=== PATIENT | female | born 1985 | race Caucasian/White ===

== ENCOUNTER 2017-08-19 15:01 | Emergency (ER) | payer OTHER ==
[~2017-08-19] VITALS: Ht 152.4 cm; Wt 57.6 kg
[2017-08-19] MEDS ORDERED: PRENATABS FA T1 EACH (15:22)
== END 2017-08-19 16:27 | disposition home or self-care (01) ==
LOC: ER 15:01
DX: M54.32 Sciatica, left side (principal)

== ENCOUNTER 2017-08-20 12:11 | Outpatient (CLI) | payer OTHER ==
[~2017-08-20 12:11] MED LIST: PRENATABS FA T1 EACH
[2017-08-28] MEDS ORDERED: LOVENOX60 MG/0.6 SUBCUTANEO (11:50)
== END 2017-08-20 13:00 | disposition home or self-care (01) ==
LOC: NUCLEAR 12:11
DX: I82.493 Acute embolism and thrombosis of other specified deep vein of lower extremity, bilateral (principal)

== ENCOUNTER → 2017-08-29 | Day surgery (SDC) | payer OTHER ==
[~2017-08-29] MED LIST changes: +LOVENOX60 MG/0.6 SUBCUTANEO
== END | disposition home or self-care (01) ==
LOC: CIR.AMB 08-28 11:18
DX: O02.1 Missed abortion (principal)

== ENCOUNTER 2017-09-17 13:16 | Outpatient (CLI) | payer OTHER | END 2017-09-17 13:18 | disposition home or self-care (01) | LOC: NUCLEAR 13:16 | DX: I82.4Z2 Acute embolism and thrombosis of unspecified deep veins of left distal lower extremity (principal); I82.4Y2 Acute embolism and thrombosis of unspecified deep veins of left proximal lower extremity ==

== ENCOUNTER 2017-11-21 09:26 | Outpatient (CLI) | payer OTHER | END 2017-11-21 09:29 | disposition home or self-care (01) | LOC: NUCLEAR 09:26 | DX: I82.442 Acute embolism and thrombosis of left tibial vein (principal); I82.4Z2 Acute embolism and thrombosis of unspecified deep veins of left distal lower extremity ==

== ENCOUNTER → 2018-03-18 | Outpatient (CLI) | payer OTHER | END | disposition home or self-care (01) | LOC: NUCLEAR 09:00 | DX: I87.2 Venous insufficiency (chronic) (peripheral) (principal) ==

== ENCOUNTER → 2018-05-04 | Emergency (ER) | payer OTHER ==
[~2018-05-04] VITALS: Ht 152.4 cm; Wt 59.4 kg
[~2018-05-04] MED LIST changes: +CEPHALEXIN500 MG PO
== END | disposition home or self-care (01) ==
LOC: ER 20:59
DX: O23.42 Unspecified infection of urinary tract in pregnancy, second trimester (principal); O98.512 Other viral diseases complicating pregnancy, second trimester; B34.9 Viral infection, unspecified; Z34.82 Encounter for supervision of other normal pregnancy, second trimester

== ENCOUNTER 2018-07-26 11:15 | Outpatient (CLI) | payer OTHER | END 2018-07-26 12:13 | disposition home or self-care (01) | LOC: NST 11:15 | DX: Z34.83 Encounter for supervision of other normal pregnancy, third trimester (principal) ==

== ENCOUNTER 2018-08-10 08:36 | Inpatient (IN) | payer OTHER ==
[~2018-08-10] VITALS: Ht 152.4 cm; Wt 148.0 kg
== END 2018-08-10 11:47 | disposition designated cancer center or children's hospital (05) | DRG 831 ==
LOC: LDR 08:36
PROVIDERS: ADMIT Obstetrics & Gynecology Maternal & Fetal Medicine
PROC: 0T9B70Z Drainage of Bladder with Drainage Device, Via Natural or Artificial Opening (ICD-10-PCS; principal; 2018-08-10)
PROC: 4A1HXCZ Monitoring of Products of Conception, Cardiac Rate, External Approach (ICD-10-PCS; 2018-08-10)
DX: O44.13 Complete placenta previa with hemorrhage, third trimester (principal); O22.33 Deep phlebothrombosis in pregnancy, third trimester; Z79.01 Long term (current) use of anticoagulants; Z34.83 Encounter for supervision of other normal pregnancy, third trimester

== ENCOUNTER 2018-08-18 12:12 | Inpatient (IN) | payer OTHER ==
[~2018-08-18] VITALS: Ht 152.4 cm; Wt 67.1 kg
[2018-08-18] MEDS ORDERED: LOVENOX40 MG/0.4 SUBCUTANEO (12:36)
== END 2018-08-19 18:57 | disposition home or self-care (01) | DRG 833 ==
LOC: LDR 12:12
PROVIDERS: ADMIT Obstetrics & Gynecology
PROC: BW30ZZZ Magnetic Resonance Imaging (MRI) of Abdomen (ICD-10-PCS; principal; 2018-08-18)
PROC: BW3GZZZ Magnetic Resonance Imaging (MRI) of Pelvic Region (ICD-10-PCS; 2018-08-18)
PROC: BY4FZZZ Ultrasonography of Third Trimester, Single Fetus (ICD-10-PCS; 2018-08-18)
PROC: 4A1HXCZ Monitoring of Products of Conception, Cardiac Rate, External Approach (ICD-10-PCS; 2018-08-18)
DX: O44.13 Complete placenta previa with hemorrhage, third trimester (principal); Z34.83 Encounter for supervision of other normal pregnancy, third trimester
CPT/HCPCS: 72197

== ENCOUNTER → 2018-10-17 | Outpatient (CLI) | payer OTHER ==
[~2018-10-17] MED LIST changes: +LOVENOX40 MG/0.4 SUBCUTANEO
== END | disposition home or self-care (01) ==
LOC: NUCLEAR 11:00
DX: I87.2 Venous insufficiency (chronic) (peripheral) (principal)

== ENCOUNTER → 2019-03-28 | Outpatient (CLI) | payer OTHER | END | disposition home or self-care (01) | LOC: NUCLEAR 09:43 | DX: I87.2 Venous insufficiency (chronic) (peripheral) (principal) ==

== ENCOUNTER 2020-10-07 08:20 | Outpatient (CLI) | payer OTHER | END 2020-10-07 08:22 | disposition home or self-care (01) | LOC: NUCLEAR 08:20 | PROVIDERS: ATTEND Internal Medicine Hematology & Oncology | DX: I87.2 Venous insufficiency (chronic) (peripheral) (principal) ==

== ENCOUNTER 2021-03-21 08:46 | Outpatient (CLI) | payer OTHER | END 2021-03-21 08:51 | disposition home or self-care (01) | LOC: NUCLEAR 08:46 | PROVIDERS: ATTEND Internal Medicine Hematology & Oncology | DX: I82.442 Acute embolism and thrombosis of left tibial vein (principal); I87.2 Venous insufficiency (chronic) (peripheral) ==

== ENCOUNTER 2021-08-31 07:53 | Outpatient (CLI) | payer OTHER | END 2021-08-31 07:54 | disposition home or self-care (01) | LOC: NUCLEAR 07:53 | PROVIDERS: ATTEND Internal Medicine Hematology & Oncology | DX: I87.2 Venous insufficiency (chronic) (peripheral) (principal); Z86.718 Personal history of other venous thrombosis and embolism ==

== ENCOUNTER → 2022-06-19 | Outpatient (CLI) | payer OTHER | END | disposition home or self-care (01) | LOC: NUCLEAR 10:47 | PROVIDERS: ATTEND Internal Medicine Hematology & Oncology | DX: I87.2 Venous insufficiency (chronic) (peripheral) (principal); Z86.718 Personal history of other venous thrombosis and embolism; Z91.013 Allergy to seafood; Z88.8 Allergy status to other drugs, medicaments and biological substances ==

== ENCOUNTER 2023-06-22 10:37 | Outpatient (CLI) | payer OTHER | END 2023-06-22 10:45 | disposition home or self-care (01) | LOC: NUCLEAR 10:37 | PROVIDERS: ATTEND Internal Medicine Hematology & Oncology | DX: I87.2 Venous insufficiency (chronic) (peripheral) (principal); Z86.718 Personal history of other venous thrombosis and embolism ==

== ENCOUNTER 2024-06-23 10:04 | Outpatient (CLI) | payer OTHER | END 2024-06-23 10:06 | disposition home or self-care (01) | LOC: NUCLEAR 10:04 | PROVIDERS: ATTEND Internal Medicine Hematology & Oncology | DX: I82.402 Acute embolism and thrombosis of unspecified deep veins of left lower extremity (principal) ==

== ENCOUNTER → 2025-01-02 10:51 | Outpatient (CLI) | payer OTHER | END | disposition home or self-care (01) | LOC: NUCLEAR 10:51 | PROVIDERS: ATTEND Internal Medicine Hematology & Oncology | DX: I82.402 Acute embolism and thrombosis of unspecified deep veins of left lower extremity (principal); I87.2 Venous insufficiency (chronic) (peripheral) ==